=== PATIENT | female | born 1970 | race Caucasian/White ===

== ENCOUNTER → 2019-05-17 | Outpatient (CLI) | payer BC, OTHER | LOC: MAMMO 08:23 | DX: Z12.31 Encounter for screening mammogram for malignant neoplasm of breast (principal) ==

== ENCOUNTER → 2020-05-20 | Outpatient (CLI) | payer BC, OTHER | LOC: RAD 13:21 | DX: E04.1 Nontoxic single thyroid nodule (principal) ==

== ENCOUNTER → 2022-02-11 | Outpatient (CLI) | payer BC, OTHER | LOC: MAMMO 14:30 | DX: Z12.31 Encounter for screening mammogram for malignant neoplasm of breast (principal); N63.10 Unspecified lump in the right breast, unspecified quadrant; N63.20 Unspecified lump in the left breast, unspecified quadrant ==

== ENCOUNTER → 2022-02-16 | Outpatient (CLI) | payer BC, OTHER | LOC: RAD 07:30 | DX: N60.12 Diffuse cystic mastopathy of left breast (principal); N60.11 Diffuse cystic mastopathy of right breast ==

== ENCOUNTER → 2024-11-17 | Outpatient (CLI) | payer BC, OTHER | LOC: MAMMO 08:00 | DX: Z12.31 Encounter for screening mammogram for malignant neoplasm of breast (principal); N60.01 Solitary cyst of right breast; N60.02 Solitary cyst of left breast ==